=== PATIENT | male | born 1985 | race Caucasian/White ===

== ENCOUNTER 2016-03-29 15:41 | Emergency (ER) | payer OTHER ==
[~2016-03-29 15:41] MED LIST: CYCL5TAB PO; MELO15TA2 PO; Z.0.NO CURRENT MEDS
[2016-03-29 15:44] VITALS: BP 129/80; PULSE 86; RESP 15; TEMP 98.2; O2SAT 97
[2016-03-29 16:54] LABS: AUTOMATED NEUTROPHIL # 12.9 TH/MM3 (1.8-7.7); BASOPHIL % 0.1 % (0.0-2.0); EOSINOPHIL # 0.2 TH/MM3 (0-0.4); EOSINOPHIL % 1.1 % (0.0-4.0); HEMO FLAGS DIFF FINAL; LYMPHOCYTE # 1.5 TH/MM3 (1.0-4.8); MEAN CELL VOLUME 83.7 FL (80.0-100.0); MEAN CORPUSCULAR HEMOGLOBIN 28.4 PG (27.0-34.0); MONO % 5.4 % (0.0-8.0); NEUT % 83.4 % (16.0-70.0); PLATELET COUNT 233 TH/MM3 (150-450); RED BLOOD COUNT 5.38 MIL/MM3 (4.50-5.90); RED CELL DISTRIBUTION WIDTH 12.8 % (11.6-17.2); WHITE BLOOD COUNT 15.5 TH/MM3 (4.0-11.0)
[2016-03-29 17:02] LABS: ANION GAP 8 MEQ/L (5-15); AST (GOT) 18 U/L (15-37); BLOOD UREA NITROGEN 18 MG/DL (7-18); CHLORIDE 104 MEQ/L (98-107); GLOMERULAR FILTRATION RATE 84 ML/MIN (>89); POTASSIUM 4.1 MEQ/L (3.5-5.1); SODIUM (NA) 138 MEQ/L (136-145)
[2016-03-29 17:06] LABS: ALKALINE PHOSPHATASE 97 U/L (45-117); ALT (GPT) 37 U/L (12-78); TOTAL BILIRUBIN ADULT 0.4 MG/DL (0.2-1.0)
[2016-03-29] MEDS ORDERED: SODIUM CHLORIDE 0.9% FLUSH 5 ML FLUSH IVF PRN (18:15)
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
--- NOTE | 2016-03-29 18:45 | RADRPT ---
EXAM DATE/TIME: 03/29/2016 18:31 [facility] COMPARISON: No previous studies available for comparison. INDICATIONS : Syncope, possible seizure. RADIATION DOSE: 49.02 CTDIvol (mGy) MEDICAL HISTORY : None SURGICAL HISTORY : None. ENCOUNTER: Initial ACUITY: 1 day PAIN SCALE: 0/10 LOCATION: cranial TECHNIQUE: Multiple contiguous axial images were obtained of the head. Using automated exposure control and adj ustment of the mA and/or kV according to patient size, radiation dose was kept as low as reasonably a chievable to obtain optimal diagnostic quality images. FINDINGS: CEREBRUM: The ventricles are normal for age. No evidence of midline shift, mass lesion, hemorrhage or acute in farction. No extra-axial fluid collections are seen. POSTERIOR FOSSA: The cerebellum and brainstem are intact. The 4th ventricle is midline. The cerebellopontine angle i s unremarkable. EXTRACRANIAL: The visualized portion of the orbits is intact. SKULL: The calvaria is intact. No evidence of skull fracture. CONCLUSION: Negative noncontrast head CT. Phoenix Heard MD on March 29, 2016 at 18:43 Board Certified Radiologist. This report was verified electronically.
[2016-03-29 19:54] VITALS: RESP 18; O2SAT 99
--- NOTE | 2016-03-30 22:53 | EKG ---
Date Performed: 03/29/2016 Time Performed: 16:25:58 PTAGE: 30 years EKG: SINUS BRADYCARDIA BORDERLINE ECG NO PREVIOUS TRACING DOCTOR: Valery Weathers Interpretating Date/Time 03/30/2016 22:47:27
== END 2016-03-29 21:06 | disposition home or self-care (01) ==
LOC: NEPC 15:41
DX: R55 Syncope and collapse (principal); F17.200 Nicotine dependence, unspecified, uncomplicated; R19.7 Diarrhea, unspecified
CPT/HCPCS: 70450; 80053; 85025; 93005